=== PATIENT | female | born 1995 | race Caucasian/White ===

== ENCOUNTER 2021-06-01 10:58 | Emergency (ER) | payer MEDICAID, SELFPAY ==
[2021-06-01 11:00] VITALS: BP 107/68; PULSE 79; RESP 18; TEMP 36.2; O2SAT 99; BMI 20.4
--- NOTE | 2021-06-01 11:16 | ED.GENADULT ---
HPI - General Adult General Chief complaint: General Medical Stated complaint: Facial swelling/ wisdom teeth removal 1x wk Time Seen by Provider: 06/01/21 11:08 Source: patient and family History of Present Illness HPI narrative: Patient is 2 days postop wisdom tooth extraction. She comes in today because her face swelled up significantly starting at 03:00 this morning. Pain has increased. No fevers or chills. She is still able to swallow and eat food. She was on liquid diet but yesterday had sushi. No difficulty breathing. She denies swelling underneath her chin or in the back of her throat. She tried to call her oral surgeon today but so far has not gotten through so she came to the emergency department. Related Data Previous Rx's Medication Instructions Recorded clindamycin HCl 300 mg capsule 300 mg PO Q6H #28 cap 06/01/21 Allergies Allergy/AdvReac Type Severity Reaction Status Date / Time No Known Allergies Allergy Unverified 11/06/19 16:31 Review of Systems Constitutional: Comments: No fevers or chills ENT: Comments: Mild pain and facial swelling as mentioned Respiratory: Comments: No difficulty breathing Gastrointestinal: Comments: No nausea vomiting PMFSH Social History Social History Advance Directives: No Advance Directives Information Provided: No Patient : No Physical Exam ED Vital Signs: Vital Signs - 24 hr 06/01/21 11:00 Temperature 97.2 F Pulse Rate 79 Respiratory Rate 18 Blood Pressure 107/68 Pulse Oximetry 99 BMI result Body Mass Index 20.4 Const Other: Awake and alert in no acute distress. HENMT Other: Bilateral facial swelling but much more significant on the right side. Swelling is lateral posterior mandible and extending in to right side of face. No significant induration or erythema. No fluctuance noted. There is no submandibular swelling. She is able to open her mouth but not fully secondary to the discomfort. No lymphadenopathy noted. There is no stridor or difficulty swallowing or breathing. Neck Other: Full range of motion Resp Other: No respiratory distress Skin Other: Warm and dry without erythema Course Course Course Narrative: Postoperative dental infection Dry socket There is no evidence of Rito's angina or airway involvement. Patient is still able to adequately take p.o. as. She has been taking her penicillin, and I will add clindamycin for double antibiotic coverage. She will follow up with her oral surgeon for better evaluation and visualization. Increase mild wash rinses and switches to clear debris from sockets Discharge Plan Discharge Clinical Impression: Dental infection Patient Disposition: Home, Self-Care Instructions: Dental Abscess (ED) Additional Instructions: Be sure to increase mouthwash rinses to keep surgical sites free from debris. Continue to call your oral surgeon for follow-up in the next 1-2 days. Clindamycin is a 2nd antibiotic. Take this in addition to the penicillin you are already taking Prescriptions: New clindamycin HCl 300 mg capsule 300 mg PO Q6H Qty: 28 0RF
== END 2021-06-01 11:30 | disposition home or self-care (01) ==
PROVIDERS: Emergency Provider Emergency Medicine
DX: K04.7 Periapical abscess without sinus (principal)
CPT/HCPCS: 99283

== ENCOUNTER 2021-09-30 14:58 | Emergency (ER) | payer MEDICAID, SELFPAY ==
[2021-09-30 16:18] VITALS: BP 130/77; PULSE 81; RESP 16; TEMP 36.7; O2SAT 98; BMI 18.5
[2021-09-30 16:42] LABS: Appearance Urine HAZY; Color Urine YELLOW; Glucose Urine UA NEG (NEG); Leukocyte Esterase Urine NEG (NEG); Nitrite Urine NEG (NEG); PH 5.5 (5.0-8.0); Specific Gravity - Urine >= 1.030 (1.005-1.025); Urine Blood 1+ (NEG); Urine Ketones NEG (NEG); Urine Protein NEG (NEG-TRACE)
[2021-09-30 16:44] LABS: UPreg QC Valid YES; Urine Pregnancy NEGATIVE (NEGATIVE)
[2021-09-30 16:48] LABS: Bacteria Urine 2+ /LPF; Squamous Epithelial Cell Urine 3+ /LPF; WBC Urine 0-2 /HPF (0-4)
--- NOTE | 2021-09-30 20:16 | ED.NAVMDI ---
HPI - Nausea/Vomiting/Diarrhea General Chief complaint: Nausea/Vomiting/Diarrhea Stated complaint: vomiting/abd pain Time Seen by Provider: 09/30/21 20:15 Source: patient Mode of arrival: ambulatory Limitations: no limitations History of Present Illness HPI Narrative: Patient is a 26 year old female presenting to the emergency department today with resolved vomiting and diarrhea, now requesting STD screening. Patient states that she had some vomiting and diarrhea earlier today but that is now resolved and she would like to be tested for STDs. Patient denies any current dizziness, lightheadedness, abdominal pain, nausea, fever, chills, blurry vision, double vision, loss of vision, chest pain, difficulty breathing, shortness of breath, back pain, night sweats, pain with urination, increased urinary frequency, increased urinary urgency, blood in her urine or stool, syncope or a near syncopal episode, recent trauma or falls, bowel incontinence, bladder incontinence, bowel retention, bladder retention, or any other complaints at this time. MD elicited complaint: vomiting and diarrhea Onset (ago): hour(s) Associated nausea: Yes Associated abdominal pain: No Location of pain: none Severity: mild Exacerbating factors: none Relieving factors: none Related Data Previous Rx's Medication Instructions Recorded clindamycin HCl 300 mg capsule 300 mg PO Q6H #28 caps 06/01/21 doxycycline hyclate 100 mg tablet 100 mg PO BID 7 days #14 tabs 09/30/21 Allergies Allergy/AdvReac Type Severity Reaction Status Date / Time No Known Allergies Allergy Unverified 11/06/19 16:31 Review of Systems Constitutional: Constitutional: Reports no additional constitutional complaints, Denies chills, Denies fever(s) and Denies night sweats Eyes: Eyes: Reports no additional eye complaints, Denies blurry vision, Denies change in vision, Denies diplopia, Denies eye discharge, Denies loss of vision and Denies eye pain ENT: Denies dizziness Cardiovascular: Cardiovascular: Reports no additional cardiovascular complaints, Denies chest pain, Denies lightheadedness, Denies Loss of Consciousness and Denies dyspnea Respiratory: Respiratory: Reports no additional respiratory complaints and Denies dyspnea Gastrointestinal: Gastrointestinal: Reports nausea Genitourinary: Genitourinary: Denies hematuria, Denies urinary frequency, Denies dysuria, Denies urinary incontinence, Denies urinary hesitancy and Denies urinary urgency Musculoskeletal: Musculoskeletal: Reports no additional musculoskeletal complaints, Denies numbness and Denies tingling Neurologic: Denies dizziness, Denies loss of vision, Denies numbness and Denies tingling Psychiatric: Psychiatric: Reports no additional psychiatric complaints Endocrine: Endocrine: Reports no additional endocrine complaints Hematologic/Lymphatic: Hematologic/Lymphatic: Reports no additional hematologic/lymphatic complaints Allergic/Immunologic: Allergic/Immunologic: Reports no additional allergic/immunologic complaints [facility] Past Medical History Attestation statement: The following information was validated with the patient. Source: old records reviewed Social History Social History Advance Directives: No Advance Directives Information Provided: No Physical Exam Vital Signs: Vital Signs: Last Vital Signs Temp 98.3 F 09/30/21 23:14 Pulse 69 09/30/21 23:14 Resp 14 09/30/21 23:14 BP 115/62 09/30/21 23:14 Pulse Ox 98 09/30/21 23:14 O2 Del Method 09/30/21 23:14 BMI result Body Mass Index 18.5 Const: General: cooperative, no acute distress, alert and awake Nutritional Appearance: well nourished Orientation/consciousness: patient oriented x3 Limitations: no limitations HEENT: Head: Yes normal to inspection and Yes atraumatic Ears: hearing grossly normal bilaterally and external ears normal General nose exam: Normal external nose present, no nasal discharge noted and no epistaxis Face and sinus: Yes normal facial exam, No abrasion and No laceration Mouth: Normal oral and palatal mucosa present, no drooling and no muffled voice Eyes: General: appearance normal, both eyes and all related structures Periorbital: periorbital findings normal Eyelids: Yes eyelids normal Conjunctivae: conjunctivae normal Pupils: Equal, round and reactive pupils present EOM: EOMs intact bilaterally Neck: Neck: Yes normal visual inspection, Yes full ROM and Yes no lymphadenopathy Chest: Chest palpation & inspection: normal inspection of the chest Resp: Effort & Inspection: normal respiratory effort and able to speak in complete sentences Auscultation: clear to auscultation bilaterally Cardio: Rate: regular rate Rhythm: regular rhythm GI: Inspection: Yes normal to inspection Palpation (GI): Soft to palpation, not firm, nontender and no guarding Neuro: General: patient oriented x3 and moves all extremities Cranial nerves: Yes Equal, round and reactive pupils present Cognition (Neuro): normal cognition Motor exam (neuro): 5/5 motor strength present throughout Sensory Exam: Normal double simultaneous stimulation for sensation Coordination: [id number] test normal Extrem: General: Yes normal to inspection, Yes full ROM and Yes capillary refill normal Psych: Appearance: grossly normal Mental Status: mental status grossly normal Affect: normal affect Attitude: cooperative Thought process: Normal thought process present Thought content: Normal thought content present Insight: Good insight present (Psych) MDM - Nausea/Vomiting/Diarrhea MDM Narrative Medical decision making narrative: Patient is a 26 year old female presenting to the emergency department today requesting STD testing. Patient's physical exam was unremarkable. Patient's blood work showed an elevated white blood cell count however, I believe this secondary to her previous vomiting. I explained my physical exam findings as well as all test results to the patient. I answered all questions asked by the patient. Patient received STD prophylaxis, without incident. I stressed the importance of the patient taking her medication as prescribed. I stressed the importance of the patient following up with her primary care provider. I stressed the importance of the patient returning to the emergency department immediately if her symptoms were to worsen or if she were to develop any dizziness, shortness of breath, difficulty breathing, chest pain, blurry vision, loss of vision, nausea, vomiting, abdominal pain, fever, chills, back pain, or any other complaints. Patient verbalized agreement and understanding with this treatment plan and discharge. Differential Diagnosis Differential diagnosis: Likely gastroenteritis Medical Records Attestation: I reviewed the patient's medical records. Lab Data Attestation: I reviewed the patient's lab results. Result diagrams: 09/30/21 21:59 09/30/21 21:58 Labs: Lab Results 09/30/21 09/30/21 09/30/21 Range/Units 16:33 16:33 21:58 WBC (4.8-10.8) X10*3/uL RBC (4.20-5.50) X10*6/uL Hgb (12.0-16.0) g/dl Hct (37.0-47.0) % MCV (80.0-98.0) fL MCH (27.0-33.0) pg MCHC (31.0-35.0) g/dl RDW (11.0-16.0) % Plt Count (160-400) X10*3/uL MPV (9.4-12.3) fL Immature Gran % (Auto) (0.0-0.4) % Neut % (Auto) (45-73) % Lymph % (Auto) (20-40) % Winn % (Auto) (2-11) % Eos % (Auto) (0-4) % Baso % (Auto) (0-2) % Lymph # (Auto) (1.2-4.9) X10*3/uL Winn # (Auto) (0.1-1.2) X10*3/uL Eos # (Auto) (0.0-0.4) X10*3/uL Baso # (Auto) (0.0-0.2) X10*3/uL Abs Immat Gran (auto) (0.00-0.03) X10*3/uL Absolute Neuts (auto) (2.0-8.3) x10*3/uL Absolute Nucleated RBC (0.0-0.012) X10*3/uL Nucleated RBC % (auto) (0.0-0.2) /100WBC Sodium 142 (135-145) mmol/L Potassium 4.0 (3.3-5.1) mmol/L Chloride 106 (96-108) mmol/L Carbon Dioxide 24 (22-29) mmol/L Anion Gap 16 (12-20) BUN 12 (9-16) mg/dL Creatinine 0.76 (0.5-1.4) mg/dL Estim Creat Clear Calc 104.5 Estimated GFR > 60 Random Glucose 87 (60-115) mg/dL Calcium 9.8 (8.4-10.2) mg/dL Total Bilirubin 0.7 (0.0-1.0) mg/dL AST 20 (5-31) U/L ALT 12 (0-31) U/L Alkaline Phosphatase 63 (39-117) U/L Total Protein 8.6 H (6.5-8.0) g/dL Albumin 5.1 H (3.5-5.0) g/dL Lipase 21 (8-78) U/L Urine Color YELLOW Urine Appearance HAZY Urine pH 5.5 (5.0-8.0) Ur Specific [place] >= 1.030 H (1.005-1.025) Urine Protein NEG (NEG-TRACE) MG/DL Urine Glucose (UA) NEG (NEG) MG/DL Urine Ketones NEG (NEG) MG/DL Urine Blood 1+ H (NEG) Urine Nitrite NEG (NEG) Ur Leukocyte Esterase NEG (NEG) Urine RBC 5-9 H (0) /HPF Urine WBC 0-2 (0-4) /HPF Ur Squamous Epith Cells 3+ /LPF Urine Bacteria 2+ /LPF Urine Test NEGATIVE (NEGATIVE) 09/30/21 Range/Units 21:59 WBC 14.6 H (4.8-10.8) X10*3/uL RBC 4.93 (4.20-5.50) X10*6/uL Hgb 14.8 (12.0-16.0) g/dl Hct 43.9 (37.0-47.0) % MCV 89.0 (80.0-98.0) fL MCH 30.0 (27.0-33.0) pg MCHC 33.7 (31.0-35.0) g/dl RDW 13.0 (11.0-16.0) % Plt Count 322 (160-400) X10*3/uL MPV 8.8 L (9.4-12.3) fL Immature Gran % (Auto) 0.3 (0.0-0.4) % Neut % (Auto) 76.7 H (45-73) % Lymph % (Auto) 16.1 L (20-40) % Winn % (Auto) 6.0 (2-11) % Eos % (Auto) 0.7 (0-4) % Baso % (Auto) 0.2 (0-2) % Lymph # (Auto) 2.3 (1.2-4.9) X10*3/uL Winn # (Auto) 0.9 (0.1-1.2) X10*3/uL Eos # (Auto) 0.1 (0.0-0.4) X10*3/uL Baso # (Auto) 0.0 (0.0-0.2) X10*3/uL Abs Immat Gran (auto) 0.05 H (0.00-0.03) X10*3/uL Absolute Neuts (auto) 11.2 H (2.0-8.3) x10*3/uL Absolute Nucleated RBC 0.000 (0.0-0.012) X10*3/uL Nucleated RBC % (auto) 0.0 (0.0-0.2) /100WBC Sodium (135-145) mmol/L Potassium (3.3-5.1) mmol/L Chloride (96-108) mmol/L Carbon Dioxide (22-29) mmol/L Anion Gap (12-20) BUN (9-16) mg/dL Creatinine (0.5-1.4) mg/dL Estim Creat Clear Calc Estimated GFR Random Glucose (60-115) mg/dL Calcium (8.4-10.2) mg/dL Total Bilirubin (0.0-1.0) mg/dL AST (5-31) U/L ALT (0-31) U/L Alkaline Phosphatase (39-117) U/L Total Protein (6.5-8.0) g/dL Albumin (3.5-5.0) g/dL Lipase (8-78) U/L Urine Color Urine Appearance Urine pH (5.0-8.0) Ur Specific [place] (1.005-1.025) Urine Protein (NEG-TRACE) MG/DL Urine Glucose (UA) (NEG) MG/DL Urine Ketones (NEG) MG/DL Urine Blood (NEG) Urine Nitrite (NEG) Ur Leukocyte Esterase (NEG) Urine RBC (0) /HPF Urine WBC (0-4) /HPF Ur Squamous Epith Cells /LPF Urine Bacteria /LPF Urine Test (NEGATIVE) Discharge Plan Discharge Clinical Impression: Exposure to STD Patient Disposition: Home, Self-Care Instructions: Postexposure Prophylaxis (ED) Additional Instructions: Follow up with your primary care provider. Return to the emergency department immediately if your symptoms worsen or if you develop any dizziness, shortness of breath, difficulty breathing, chest pain, blurry vision, loss of vision, nausea, vomiting, abdominal pain, fever, chills, back pain, or any other complaints. Prescriptions: New doxycycline hyclate 100 mg tablet 100 mg PO BID 7 Days Qty: 14 0RF No Action clindamycin HCl 300 mg capsule 300 mg PO Q6H Qty: 28 0RF Referrals: [facility] [Primary Care Provider] - Interventions: ED Discharge Assessment Last Done: 09/30/21 23:15 Discharge Date/Time: 09/30/21 23:17 Print Language: Kyrgyz
[2021-09-30 22:03] LABS: Basophils Percent Auto 0.2 % (0-2); Eosinophils Absolute Auto 0.1 X10*3/uL (0.0-0.4); Eosinophils Percent Auto 0.7 % (0-4); Hematocrit 43.9 % (37.0-47.0); Hemoglobin 14.8 g/dl (12.0-16.0); Imm Gran Abs Auto 0.05 X10*3/uL (0.00-0.03); Imm Gran Pct Auto 0.3 % (0.0-0.4); Lymphocytes Absolute Auto 2.3 X10*3/uL (1.2-4.9); Lymphocytes Percent Auto 16.1 % (20-40); MANUAL DIFF FLAG NO; Mean Corpuscular HGB Conc 33.7 g/dl (31.0-35.0); Mean Platelet Volume 8.8 fL (9.4-12.3); Monocytes Absolute Auto 0.9 X10*3/uL (0.1-1.2); Neutrophils Absolute Auto 11.2 x10*3/uL (2.0-8.3); Neutrophils Percent Auto 76.7 % (45-73); Platelet Count 322 X10*3/uL (160-400); Red Blood Count 4.93 X10*6/uL (4.20-5.50); White Blood Count 14.6 X10*3/uL (4.8-10.8)
[2021-09-30 22:19] LABS: Alanine Aminotransferase 12 U/L (0-31); Albumin Level 5.1 g/dL (3.5-5.0); Alkaline Phosphatase 63 U/L (39-117); Anion Gap 16 (12-20); Aspartate Amino Transferase 20 U/L (5-31); Bilirubin Total 0.7 mg/dL (0.0-1.0); Blood Urea Nitrogen 12 mg/dL (9-16); Calcium 9.8 mg/dL (8.4-10.2); Carbon Dioxide 24 mmol/L (22-29); Chloride 106 mmol/L (96-108); Creatinine Clr Calc Pharmacy 104.5; Estimated Glomerular Filt Rate > 60; Glucose Random 87 mg/dL (60-115); Lipase 21 U/L (8-78); Sodium 142 mmol/L (135-145); Total Protein 8.6 g/dL (6.5-8.0)
[2021-09-30] MEDS: cefTRIAXone sodium 500 MG, Lidocaine HCl 1 % MPF 1 ML IM (23:01)
[2021-09-30 23:14] VITALS: BP 115/62; PULSE 69; RESP 14; TEMP 36.8; O2SAT 98
[2021-10-01 02:52] LABS: CT PCR NOT DETECTED (Not Detect.); NG PCR NOT DETECTED (Not Detect.)
== END 2021-09-30 23:17 | disposition home or self-care (01) ==
PROVIDERS: Emergency Provider Emergency Medicine Emergency Medical Services
DX: Z20.2 Contact with and (suspected) exposure to infections with a predominantly sexual mode of transmission (principal); R11.2 Nausea with vomiting, unspecified
CPT/HCPCS: 36415; 80053; 81001; 81025; 83690; 85025; 87491; 87591; 96372; 99284; J0696

== ENCOUNTER 2022-08-26 15:10 | Emergency (ER) | payer MEDICAID, SELFPAY ==
[2022-08-26 15:26] VITALS: BP 124/66; PULSE 63; RESP 16; TEMP 36.8; O2SAT 99; BMI 22.5
--- NOTE | 2022-08-26 15:42 | ED.EXTPRO ---
HPI - Extremity Problem General Chief complaint: Extremity Injury, Upper Stated complaint: right arm laceration Time Seen by Provider: 08/26/22 15:31 Source: patient Mode of arrival: ambulatory Limitations: no limitations History of Present Illness HPI Narrative: 27 yo female with history of anxiety, depression here with laceration to right forearm. Was knocking on a window and broke through the glass causing a laceration to the right forearm, right thumb. NO weakness, numbness, tingling. Tetanus UTD Related Data Previous Rx's Medication Instructions Recorded clindamycin HCl 300 mg capsule 300 mg PO Q6H #28 caps 06/01/21 doxycycline hyclate 100 mg tablet 100 mg PO BID 7 days #14 tabs 09/30/21 Allergies Allergy/AdvReac Type Severity Reaction Status Date / Time No Known Allergies Allergy Unverified 11/06/19 16:31 Review of Systems Review of Systems: Yes all other systems are reviewed and are negative Constitutional: Constitutional: Reports no additional constitutional complaints, Denies body ache(s), Denies chills, Denies fever(s), Denies headache(s) and Denies weakness Eyes: Eyes: Reports no additional eye complaints and Denies change in vision ENT: Reports system reviewed and no additional complaints, except as documented, Denies dizziness, Denies headache(s), Denies nasal congestion, Denies nasal discharge and Denies neck pain Cardiovascular: Cardiovascular: Reports no additional cardiovascular complaints, Denies chest pain, Denies leg edema and Denies dyspnea Respiratory: Respiratory: Reports no additional respiratory complaints, Denies cough and Denies dyspnea Gastrointestinal: Gastrointestinal: Reports no additional gastrointestinal complaints, Denies abdominal pain, Denies diarrhea, Denies nausea and Denies vomiting Genitourinary: Genitourinary: Reports no additional female genitourinary complaints and Denies urinary incontinence Musculoskeletal: Musculoskeletal: Reports no additional musculoskeletal complaints, Denies back pain, Denies arthralgias, Denies joint swelling, Denies neck pain, Denies numbness and Denies tingling Integumentary/Breasts: Skin/Breast: Reports system reviewed and no additional complaints, except as docu, Denies rash and Reports wounds Neurologic: Reports system reviewed and no additional complaints, except as documented, Denies Abnormal speech present, Denies dizziness, Denies headache(s), Denies numbness, Denies tingling and Denies weakness PMFSH Past Medical History Attestation statement: The following information was validated with the patient. Source: old records reviewed and nursing notes reviewed Physical Exam Vital Signs: Vital Signs: Last Vital Signs Temp 98.3 F 08/26/22 15:26 Pulse 63 08/26/22 15:26 Resp 16 08/26/22 15:26 BP 124/66 08/26/22 15:26 Pulse Ox 99 08/26/22 15:26 O2 Del Method Room Air 08/26/22 15:26 BMI result Body Mass Index 22.5 Const: General: cooperative, healthy appearing, comfortable and no acute distress Orientation/consciousness: patient oriented x3 Limitations: no limitations HEENT: Head: Yes normal to inspection Ears: hearing grossly normal bilaterally General nose exam: Normal external nose present Face and sinus: Yes normal facial exam Mouth: Normal oral and palatal mucosa present Throat: Yes posterior oropharynx normal Eyes: General: appearance normal, both eyes and all related structures Pupils: Equal, round and reactive pupils present Neck: Neck: Yes normal visual inspection Chest: Chest palpation & inspection: normal inspection of the chest Resp: Effort & Inspection: normal respiratory effort Auscultation: clear to auscultation bilaterally Cardio: Rate: regular rate Rhythm: regular rhythm Peripheral pulses: Peripheral pulses 2+ throughout GI: Inspection: Yes normal to inspection Palpation (GI): Soft to palpation and nontender Auscultation: normal bowel sounds Back/Spine/Pelvis: Thoracic/Lumbar Spine: thoracic and lumbar spine normal to inspection Skin: General skin exam: no rashes or lesions noted Neuro: General: patient oriented x3, no focal motor deficits and normal sensation to monofilament Cranial nerves: Yes Equal, round and reactive pupils present Cognition (Neuro): normal cognition Speech: No Abnormal speech present Gait exam (Neuro): Normal gait present Motor exam (neuro): 5/5 motor strength present throughout Extrem: Other: Over the volar right FA there is a 6cm laceration with sub Q tissue noted. bleeding controlled. FROM of right elbow/wrist/hand. Normal radial/ulnar pulses. Normal distal sensation. To the right thumb at the proximal nail bed there is a skin avulsion with FROM of the thumb. Nail is intact General: Yes normal to inspection Course Course Course Narrative: This patient was seen in conjunction with Paula Rivera PA-Student who performed the wound repair with my supervision Medications Administered Discontinued Medications Generic Name Dose Route Start Last Admin Trade Name Marva PRN Reason Stop Dose Admin Lidocaine HCl 2 ml 08/26/22 15:52 08/26/22 17:07 Lidocaine Hcl 1 % Mpf 2 Ml Vial INFILTRATI 08/26/22 15:53 2 ml ONCE ONE Administration Lidocaine HCl 2 ml 08/26/22 15:52 08/26/22 17:07 Lidocaine Hcl 1 % Mpf 2 Ml Vial INFILTRATI 08/26/22 15:53 2 ml ONCE ONE Administration Lidocaine HCl 2 ml 08/26/22 15:52 08/26/22 17:07 Lidocaine Hcl 1 % Mpf 2 Ml Vial INFILTRATI 08/26/22 15:53 2 ml ONCE ONE Administration Lidocaine HCl 2 ml 08/26/22 15:53 08/26/22 17:07 Lidocaine Hcl 1 % Mpf 2 Ml Vial INFILTRATI 08/26/22 15:54 2 ml ONCE ONE Administration Lorazepam 1 mg 08/26/22 15:51 08/26/22 16:18 Lorazepam 1 Mg Tablet PO 08/26/22 15:52 1 mg ONCE ONE Administration Medical Decision Making Medical Decision Making MDM Narrative: 27 yo female right hand dominant here with laceration to right thumb, right forearm from breaking a glass window WIll need x-ray to eval for FB +++++anxious. Will need ativan See procedure note for wound repair Differential Diagnosis Differential Diagnoses: The differential diagnosis associated with the presentation includes laceration low concern for tendon injury Independent Interpretation I performed an independent interpretation of an: Plain X-Ray Interpretation: I independently reviewed the x-ray and agree with rad report. Radiology Impression Discussion of test interpretation with radiology: I have reviewed the radiologist's reading. Radiologist Impression: [address] [address] XRay Report Signed Patient: Cindy Samayoa MR#: [id number] : 1995 Acct:[id number] Age/Sex: 27 / F ADM Date: 08/26/22 Loc: HO.ED Attending Dr: Ordering Physician: Rocio Rapp NP Date of Service: 08/26/22 Procedure(s): XR forearm RT 2V Accession Number(s): [id number] cc: Rocio Rapp NP~ Examination: Right hand and right forearm. CLINICAL INDICATION: Laceration. Evaluate for foreign body. TECHNIQUE: Right hand 3 views and right forearm 2 views. Clinical indications: None. FINDINGS: Right hand: There is no visible acute fracture, dislocation or subluxation. The joint spaces are maintained normal. There is a dorsal mid forearm soft tissue laceration there is a hypodense scattered area within the area of laceration question nonopaque foreign body/dirt. No radiopaque metallic foreign body seen. XR/XR forearm RT 2V IMPRESSION: Unremarkable right hand exam. No radiopaque foreign body seen. ? ? Laceration dorsal mid forearm with soft tissue hyperdensity likely nonmetallic foreign body/dirt. ? Procedures Laceration Laceration 1: Site: upper extremity Side (If applicable): right Size (cm): 6 Description: linear and irregular Depth: simple, single layer Local Anesthetic: lidocaine 1% Amount of anesthesia used (mL): 6 Pre-repair: wound explored, irrigated extensively (Extensively irrigated with 2L NS and syringe with pressure ) and deep structures intact Skin layer closed with: vicryl Size (cm): 5-0 Number of sutures: 7 Technique: simple, interrupted Subcutaneous layer closed with: other (polysorb) Size: 4-0 Number of sutures: 3 Technique: simple, interrupted Discharge Plan Discharge Clinical Impression: Laceration of arm Patient Disposition: Home, Self-Care Instructions: Laceration (ED) Additional Instructions: sutures out in 7-10 days Prescriptions: No Action clindamycin HCl 300 mg capsule 300 mg PO Q6H Qty: 28 0RF doxycycline hyclate 100 mg tablet 100 mg PO BID 7 Days Qty: 14 0RF
[2022-08-26 17:50] VITALS: BP 115/72; PULSE 67; RESP 15; O2SAT 98
== END 2022-08-26 17:52 | disposition home or self-care (01) ==
PROVIDERS: Emergency Provider Emergency Medicine; PCP Internal Medicine
DX: S51.811A Laceration without foreign body of right forearm, initial encounter (principal); W25.XXXA Contact with sharp glass, initial encounter; Y93.9 Activity, unspecified; Y92.9 Unspecified place or not applicable; Y99.9 Unspecified external cause status
CPT/HCPCS: 12032; 73090; 73120; 99284

== ENCOUNTER 2023-04-25 16:14 | Outpatient (REF) | payer SELFPAY ==
[2023-04-25 17:53] LABS: MANUAL DIFF FLAG NO
[2023-04-25 18:17] LABS: Basophils Percent Auto 0.3 % (0-2); Eosinophils Absolute Auto 0.1 X10*3/uL (0.0-0.4); Eosinophils Percent Auto 0.9 % (0-4); Hematocrit 44.6 % (37.0-47.0); Hemoglobin 14.8 g/dl (12.0-16.0); Imm Gran Abs Auto 0.04 X10*3/uL (0.00-0.03); Imm Gran Pct Auto 0.4 % (0.0-0.4); Lymphocytes Absolute Auto 3.2 X10*3/uL (1.2-4.9); Lymphocytes Percent Auto 29.5 % (20-40); Mean Corpuscular HGB Conc 33.2 g/dl (31.0-35.0); Mean Corpuscular Hemoglobin 28.8 pg (27.0-33.0); Mean Corpuscular Volume 86.8 fL (80.0-98.0); Mean Platelet Volume 9.6 fL (9.4-12.3); Monocytes Absolute Auto 0.6 X10*3/uL (0.1-1.2); Monocytes Percent Auto 5.8 % (2-11); Neutrophils Absolute Auto 6.8 x10*3/uL (2.0-8.3); Neutrophils Percent Auto 63.1 % (45-73); Platelet Count 398 X10*3/uL (160-400); Red Blood Count 5.14 X10*6/uL (4.20-5.50); Red Cell Distribution Width 13.2 % (11.0-16.0); White Blood Count 10.8 X10*3/uL (4.8-10.8)
[2023-04-25 18:33] LABS: Alanine Aminotransferase 15 U/L (0-31); Albumin Level 4.7 g/dL (3.5-5.0); Alkaline Phosphatase 116 U/L (39-117); Anion Gap 10 (12-20); Aspartate Amino Transferase 18 U/L (5-31); Bilirubin Total 0.6 mg/dL (0.0-1.0); Blood Urea Nitrogen 7 mg/dL (9-16); Calcium 9.9 mg/dL (8.4-10.2); Carbon Dioxide 27 mmol/L (22-29); Chloride 106 mmol/L (96-108); Cholesterol 190 mg/dL (<200); Estimated Glomerular Filt Rate > 60; Glucose Random 89 mg/dL (60-115); HDL Cholesterol 32 mg/dL (>40); LDL Cholesterol Calculated 138 mg/dL (<100); Potassium 3.7 mmol/L (3.3-5.1); Sodium 139 mmol/L (135-145); Total Protein 8.5 g/dL (6.5-8.0); Triglycerides 103 mg/dL (<150)
[2023-04-25 18:50] LABS: TSH reflex Free T4 1.06 uIU/mL (0.32-4.0)
[2023-04-25 20:00] LABS: Reflex LDLD? No
[2023-04-26 17:04] LABS: HCG Tumor Marker <5 mIU/mL; Prolactin 6.7 ng/mL
== END 2023-04-25 16:15 | disposition home or self-care (01) ==
LOC: HO.HHCL 16:14
PROVIDERS: Visit Provider Internal Medicine
DX: F32.A Depression, unspecified (principal); N91.2 Amenorrhea, unspecified
CPT/HCPCS: 36415; 80053; 80061; 84146; 84443; 84702; 85025

== ENCOUNTER 2024-03-21 13:55 | Outpatient (REF) | payer SELFPAY ==
--- OUTSIDE RECORDS SUMMARY | 2024-03-21 13:58 | XMS_ITS | Encounter Summary ---
Author Organization [employer] Address [address] [facility] 7t [place] [address] Care Team Providers Care Center Line Cutter Operator Name Role Phone Marti Miller MD Primary Care Provider + Encounter Details Date Type Department Care Team (Latest Contact Info) Description 03/21/2024 Travel Social History Tobacco Use Types Packs/Day Years Used Date Smoking Tobacco: Never Passive Smoke Exposure: Never Smokeless Tobacco: Never Alcohol Use Standard Drinks/Week Comments Never 0 (1 standard drink = 0.6 oz pur e alcohol) Depression Answer Date Recorded Patient Health Questionnaire-9 Score 8 04/30/2023 Patient Health Questionnaire-9 Score 8 04/30/2023 Last PHQ-9: Questionnaire Data Not on file 0 04/30/2023 Housing Stability Answer Date Recorded What is your housing situation today? I have deborah nicole 03/21/[address] you li ve. Do you have problems with any of the following? None of the above 03/21/2023 Food Insecurity Answer Date Recorded Within the past 12 months, y ou worried that your food would run out before you got money to buy more: Never True 03/21/2023 Within the past 12 months,th e food you bought just didn't last and you didn't have enough money to get more: Never True Transportation Answer Date Recorded In the past 12 months, has l ack of transportation kept you from medical appts, meetings, work or from getting things needed for daily living? No 03/21/2023 Utilities Answer Date Recorded In the past 12 months, has t he electric, gas, oil or water company threatened to shut off services in your home? No 03/21/2023 Depression Answer Date Recorded Patient Health Questionnaire-2 Score 4 04/30/2023 Comments Unknown Sex and Gender Information Value Date Recorded Sex Assigned at Female 12/19/2021 10:15 AM EDT Legal Sex Female 10:15 AM EDT Gender Identity Female 12/19/2021 10:15 AM EDT Sexual Orientation Straight 12/19/2021 10 :15 AM EDT documented as of this encounter Plan of Treatment Not on file documented as of this encounter Visit Diagnoses Not on filedocumented in this encounter Additional Health Concerns Assessment Noted Time PHQ-9 Depression Total Score: 8 04/30/19 24 9:57 AM EDT documented as of this encounter Care Teams Center Line Cutter Operator Relationship Specialty Start Date End Date Marti Miller MD [address] [place] [id number] PCP - General Internal Medicine 05/30/22 documented as of this encounter
--- OUTSIDE RECORDS SUMMARY | 2024-03-21 13:58 | XMS_ITS | Encounter Summary ---
Author Organization [employer] Address [address] [facility] 7t [place] [address] Care Team Providers Care Management Manager Name Role Phone Marti Miller MD Primary Care Provider + Encounter Details Date Type Department Care Team (Late st Contact Info) Description 03/21/2024 10:30 AM EST Office Visit [facility] [address] [place], [place] [phone] Cami Musa MD [address] [place], [place] [phone] Vaginal discharge Social History Tobacco Use Types Packs/Day Years Used Date Smoking Tobacco: Never Passive Smoke Exposure: Never Smokeless Tobacco: Never Tobacco Cessation:Counseling Given: Not Answered Alcohol Use Standard Drinks/Week Comments Never 0 (1 standard drink = 0.6 oz pur e alcohol) Depression Answer Date Recorded Patient Health Questionnaire-9 Score 8 04/30/2023 Patient Health Questionnaire-9 Score 8 04/30/2023 Last PHQ-9: Questionnaire Data Not on file 0 04/30/2023 Housing Stability Answer Date Recorded What is your housing situation today? I have deborah rivera 03/21/[address] you li [...] AM EDT documented as of this encounter Last Filed Vital Signs Vital Sign Reading Time Taken Comments Blood Pressure 126/54 03/21/2024 10:45 AM EST Pulse 109 03/21/2024 10:45 AM EST Temperature 35.9 ??C (96.6 ??F) 03/21/2024 10:[address] Respiratory Rate 20 03/21/2024 10:45 AM EST Oxygen Saturation - - Inhaled Oxygen Concentration - - Weight 77.7 kg (171 lb 6.4 oz) 03/21/2024 10:45 AM EST Height 165.1 cm (5' 5 ) 03/21/2024 10:45 AM EST Body Mass Index 28.52 03/21/2024 10:45 AM EST documented in this encounter Progress Notes * Cami Musa MD - 03/21/2024 10:30 AM EST SUBJECTIVE: Cindy Samayoa is a 28 y.o. year old female who presents for acute visit. Denies recent illness,ER visit, or hospitalization. Acute Concerns: She reports three days of clear vaginal discharge with itching externally. Small amount of bleedingon toilet paper with wiping. LMP 2 weeks ago. She is sexually active with one AMAB partner, last activity 3 days ago, without condom. Patient Active Problem List Diagnosis Childhood emotional disorder Chlamydial infection of anus and rectum Enlarged tonsils Learning difficulty Amygdalolith Family history of hyperthyroidism Environmental allergies Food insecurity Depression Amenorrhea Anxiety Contraceptive management History reviewed. No pertinent surgical history. Family History Problem Relation Name Age of Onset Thyroid disease Mother Social History Social History Narrative Not on file Review of Systems Constitutional: Negative. Respiratory: Negative. Cardiovascular: Negative. Genitourinary: Positive for dysuria and vaginal discharge. Negative for vaginal bleeding and vaginal pain. OBJECTIVE: Vitals: 03/21/24 1045 BP: 126/54 BP Location: Left arm Patient Position: Sitting BP Cuff Size: Adult Pulse: 109 Resp: 20 Temp: 96.6 ??F (35.9 ??C) TempSrc: Oral Weight: 171 lb 6.4 oz (77.7 kg) Height: 5' 5 (1.651 m) Physical Exam Vitals and nursing note reviewed. Constitutional: Appearance: Normal appearance. HENT: Head: Normocephalic and atraumatic. Skin: General: Skin is warm and dry. Neurological: General: No focal deficit present. Mental Status: She is alert and oriented to person, place, and time. Psychiatric: Mood and Affect: Mood normal. Behavior: Behavior normal. ASSESSMENT/PLAN Problem List Items Addressed This Visit None Visit Diagnoses Vaginal discharge we will contact her with results, avoid douching or cleaning with soap Relevant Orders Bacterial Vaginosis Chlamydia/N. Gonorrhoeae RNA, TMA, Urogenitial Follow Up: per PCP recall or sooner prn No Known Allergies Current Outpatient Medications: OLANZapine (ZyPREXA) 5 MG tablet, TAKE 1 TABLET BY MOUTH AT BEDTIME, Disp: 90 tablet, Rfl: 0 Vietnamese Translation: Patient is bilingual and declines translation services documented in this encounter Plan of Treatment Scheduled Orders Name Type Priority Associated Diagnoses Orde r Schedule Bacterial Vaginosis Microbiology Routine Vaginal discharge Ordered: 03/21/2024 Chlamydia/N. Gonorrhoeae RNA, TMA, Urogenitial Microbiology Routine Vaginal discharge Expected: 03/21/2024 (Approximate), Expires: 03/21/2025 documented as of this encounter Visit Diagnoses Diagnosis Vaginal discharge Leukorrhea, not specified as infective documented in this encounter Additional Health Concerns Assessment Noted Time PHQ-9 Depression Total Score: 8 04/30/19 24 9:57 AM EDT documented as of this encounter Care Teams Management Manager Relationship Specialty Start Date End Date Marti Miller MD [address] [place] [id number] PCP - General Internal Medicine 05/30/22 documented as of this encounter
--- OUTSIDE RECORDS SUMMARY | 2024-03-21 13:58 | XMS_ITS | Encounter Summary ---
Author Organization [employer] Address [address] [facility] 7t [place] [address] Care Team Providers Care Heading Maker Name Role Phone Marti Miller MD Primary Care Provider + Reason for Visit * Reason Comments Med Refill Encounter Details Date Type Department Care Team (Late st Contact Info) Description 07/13/2023 Refill [facility] 230 [place], [place] [phone] Marti Miller MD [address] [place], [place] [phone] Depression, unspecified depression type; Anxiety Social History Tobacco Use Types Packs/Day Years Used Date Smoking Tobacco: Never Smokeless Tobacco: Never Alcohol Use Standard [...] as of this encounter Visit Diagnoses Diagnosis Depression, unspecified depression type Anxiety Anxiety state, unspecified documented in this encounter Additional Health Concerns Assessment Noted Time PHQ-9 Depression Total Score: 8 04/30/19 24 9:57 AM EDT documented as of this encounter Care Teams Heading Maker Relationship Specialty Start Date End Date Marti Miller MD [address] [place] [phone] PCP - General Internal Medicine 05/30/22 documented as of this encounter
--- OUTSIDE RECORDS SUMMARY | 2024-03-21 13:58 | XMS_ITS | Encounter Summary ---
Author Organization [facility] [facility] Address [address] [facility] [address] [place] [address] Care Team Providers Care Final Inspector And Tester Name Role Phone Marti Miller MD Primary Care Provider + Reason for Visit * Reason Onset Date Comments Nurse Triage 03/20/2024 Encounter Details Date Type Department Care Team (Late st Contact Info) Description 03/20/2024 Telephone [facility] MED[facility] 230 [place], [place] [phone] Marti Miller MD [address] [place], [place] [phone] Nurse Triage Social History Tobacco Use Types Packs/Day Years [...] AM EDT documented as of this encounter Miscellaneous Notes * Telephone Encounter - Evelyn Roman RN - 03/20/2024 3:44 PM EST Call returned to Cindy Samayoa to triage below. Reports having vaginal itching, odor and bleeding from irritation. Per pt having clear discharge. Pt denies any pelvic pain or flank pain. Endorsesburning with passing urine. No odor or dark/cloudy color. Pt advised of disposition, agrees to [facility] tomorrow with team provider. Reviewed home care advise, ER precautions and reasons to call back. Protocol Used: Vaginal Symptoms (Adult) Protocol-Based Disposition: See in Office or Video Visit within 3 Days Future Appointments Date Time Provider Department Center 03/21/2024 10:30 AM Cami Musa MD [facility] Insurance verified as active per Real Time Eligibility in [facility]. Positive Triage Question: * Symptoms of a yeast infection (i.e., itchy, white discharge, not bad smelling) and not improved > 3 days following Care Advice * All higher-acuity triage questions were negative Care Advice Discussed: * Genital Hygiene * Reasons To Call Back - You become worse * Telephone Encounter - Marleni Samayoa - 03/20/2024 2:48 PM EST Symptoms: Vaginal Symptoms - Not Bleeding, Itching - No Rash Outcome: Schedule an urgent appointment (within 4 hours) or talk to a nurse or provider soon Reason: Itching has caused bleeding The caller accepted this outcome. [phone] documented in this encounter Plan of Treatment Not on file documented as of this encounter Visit Diagnoses Not on filedocumented in this encounter Additional Health Concerns Assessment Noted Time PHQ-9 Depression Total Score: 8 04/30/19 24 9:57 AM EDT documented as of this encounter Care Teams Final Inspector And Tester Relationship Specialty Start Date End Date Marti Miller MD [address] [place] [phone] PCP - General Internal Medicine 05/30/22 documented as of this encounter
--- OUTSIDE RECORDS SUMMARY | 2024-03-21 13:58 | XMS_ITS | Clinical Summary ---
Author Organization [employer] Address [address] [facility] 7t [place] [address] Care Team Providers Care Catering Operations Manager Name Role Phone Marti Miller MD Primary Care Provider + Allergies No known active allergies Medications * This document contains information received from the source organization and may not represent a complete record from that organization. OLANZapine (ZyPREXA) 5 MG tabletIndication s:Depression, unspecified depression type,Anxiety TAKE 1 TABLET BY MOUTH AT BEDTIME 90 tablet 4 Active Benzocaine-Menth ol (Cepacol INSTAMAX) 15-20 MG lozenge Take 1 lozenges every 2 hours as needed. 1 03/21/19 25 Discontinu ed(Therapy completed) Active Problems Problem Noted Date Diagnosed Date Contraceptive management 04/25/2023 Assessment & Plan (04/25/2023 3:57 PM EST): Discussed with her re contraceptive options including IUD, Nexplanon (re insert) and OCPs and to always use condom for STI prevention and as a good BC method. She didn't want to make any decision at this time. We also discussed about emergency contraception. She will call back prn if she decides to start BC or fu with me in . Counseled to stop THC use Depression 03/21/2023 Assessment & Plan (04/30/2023 11:23 AM EDT): During IBH Consult Cindy presenting with depressed mood, loss of interests/pleasure , trouble concentrating, thoughts of worthlessness or guilt, fatigue/loss of energy, inappropriate guilt , hopelessness, worthlessness , difficulty concentrating and excessive worry/anxiety, difficulty controlling worry, easily fatigued, difficulty concentrating/Mind going blank , and irritability; for a period of 18+ mo in the context of financial concern, employment concern, and relationship issues. Patient experiencing panic attacks due to current life stressors. PCP will start medication to treat sxs (see PCP note). Pt lives with mom and sister. PLAN: (check all that apply) Behavioral Health Integration Plan Internal Follow up with [facility] Patient Self Plan Patient to utilize skills provided in intervention , [facility] as [facility], Comply with medication , and Patient to reach out to [facility] as needed. Patient lost medical insurance. She will reconnect with the insurance department. Referral will be on-hold until insurance is renewed. clinician will provide follow-up BE. Assessment & Plan (04/25/2023 3:53 PM EST): -Seems to be doing well since starting Zyprexa. - will evaluate today, I will continue rx low dose Zyprexa for now and fu in 3m -Has crisis phone number and counseled to reach out for help. -Asked her to get labs done. -Follow up with Behavioral Health for continued education, GED, and employment acquisition. Assessment & Plan (03/21/2023 12:02 PM EST): -Seems to be doing well since starting Zyprexa. -Will refer to Behavioral Health for evaluation. -Has crisis phone number and counseled to reach out for help. -Ordered labs and asked to follow up in 4 weeks. -Follow up with Case Management and Behavioral Health for continued education, GED, and employment acquisition. Amenorrhea 03/21/2023 Assessment & Plan (04/25/2023 3:52 PM EST): test is neg today, order serum HCG. Order labs and fu in 3m Assessment & Plan (03/21/2023 12:02 PM EST): -Patient is one week late, will order HCG. Anxiety 03/21/2023 Assessment & Plan (04/30/2023 11:23 AM EDT): During IBH Consult Ladaisha presenting with depressed mood, loss of interests/pleasure , trouble concentrating, thoughts of worthlessness or guilt, fatigue/loss of energy, inappropriate guilt , hopelessness, worthlessness , difficulty concentrating and excessive worry/anxiety, difficulty controlling worry, easily fatigued, difficulty concentrating/Mind going blank , and irritability; for a period of 18+ mo in the context of financial concern, employment concern, and relationship issues. Patient experiencing panic attacks due to current life stressors. PCP will start medication to treat sxs (see PCP note). Pt lives with mom and sister. PLAN: (check all that apply) Behavioral Health Integration Plan Internal Follow up with [facility] Patient Self Plan Patient to utilize skills provided in intervention , Patient to reach out to [facility] team as needed, Comply with medication , and Patient to reach out to [facility] as needed. Patient lost medical insurance. She will reconnect with the insurance department. Referral will be on-hold until insurance is renewed. clinician will provide follow-up BE. Assessment & Plan (03/21/2023 12:04 PM EST): -Continue Zyprexa. -Follow up with Behavioral health. -Counseled on marijuana usage and it's oil heaterman effects on anxiety. -Will continue to prescribe Zyprexa for now. 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 Food insecurity 10/20/2016 Environmental allergies 11/04/2014 Childhood emotional disorder 04/24/2013 Learning difficulty 09/21/2011 Encounters Date Type Department Care Team Description 03/21/2024 10:30 AM EST Office Visit [facility] [address] [place] [phone] Cami Musa MD Vaginal discharge 03/21/2024 Travel 03/20/[address] [address] Marti Miller MD Nurse Triage 02/18/[address] [phone] Marti Miller MD No Show (Pt NO SHOW for Office Visit (MDD/Labs - r/s 01/25/24) with Dr. Miller 02/18/24. No Show Letter Mailed.) 02/07/2024 Patient Outreach [facility] [address] [place] [address] Matri Miller MD Pre-visit Planning (Not in service) 01/01/2024 Refill [facility] [address] [place] [address] Marti Miller MD Depression, unspecified depression type; Anxiety 12/31/2023 Refill [facility] [address] [place] [address] Marti Miller MD Depression, unspecified depression type; Anxiety from Last 3 Months Immunizations Name Administration Dates Next Due DTaP 10/05/2000, 8,03/20/1997,1997,02/15/1997,02/06/1997,1996,0 1996 HPV, Quadrivalent 03/24/2010,08/01/2007,05/31/19 08 Hep B, Adolescent or Pediatric 06/16/1997,1997,1996 Hep B, Unspecified 06/18/1997,03/20/1997, 997 HiB, unspecified 11/23/1997, 8,03/20/1997,1996,1996 Hib (HbOC) 11/23/1997, 8,02/15/1997,1996 IPV 10/05/2000, 8,03/18/1997,1996,02/06/1997,1996,1996 Influenza injectable quadriv alent IIV4 with preservative 11/20/2016 Influenza live intranasal trivalent 01/09/2013 Influenza, IIV3, injectable 03/24/2010 Influenza, live, intranasal 01/09/2013 MMR 10/05/2000,08/13/1997 Moderna Covid-19 Vaccine 12+ 03/10/2021,02/11/20 21 Tdap 05/31/2007 Varicella 05/31/2007,08/13/1997 Family History Medical History Relation Name Comments Thyroid disease Mother Relation Name Status Comments Mother Social History Tobacco Use Types Packs/Day Years [...] Orientation Straight 12/19/2021 10 :15 AM EDT Last Filed Vital Signs Vital Sign Reading Time Taken Comments Blood Pressure 126/54 03/21/2024 10:45 AM EST Pulse 109 03/21/2024 10:45 AM EST Temperature 35.9 ??C (96.6 ??F) 03/21/2024 10:[address] Respiratory Rate 20 03/21/2024 10:45 AM EST Oxygen Saturation 98% 04/25/2023 3:19 PM EST Inhaled Oxygen Concentration - - Weight 77.7 kg (171 lb 6.4 oz) 03/21/2024 10:45 AM EST Height 165.1 cm (5' 5 ) 03/21/2024 10:45 AM EST Body Mass Index 28.52 03/21/2024 10:45 AM EST Plan of Treatment Health Maintenance Due Date Last Done Comments HIV Screening 1996 Alcohol/Substance Use Screening 2008 Hepatitis C Screening 2014 DTaP/Tdap/Td Vaccines (7 - Td or Tdap) 05/30/2017 05/31/2007, 10/05/2000, 11/23/1997, Additional history exists Pap Smear 2017 COVID-19 Vaccine ( season) 2023 03/10/2021, 02/10/2021 Influenza Vaccine (#1) 2023 7, 01/09/2013, 01/09/2013, Additional history exists SDOH Screening 03/21/2024 03/21/2023 Family Planning (PISQ) 04/24/2024 04/25/2023 Depression Screening 04/29/2024 04/30/2023, 04/30/19 24 Tobacco Screening 03/21/2025 03/21/2024 Zoster Vaccines (1 of 2) 2046 RSV Patients and Patients Aged 60 years or older (1 - 1-dose 75+ series) 07/04/2071 Hepatitis B Vaccines Completed 06/18/1997, 06/16/1997, 03/20/1997, Additional history exists HIB Vaccines Completed 11/23/1997, 06/1997, 08/13/1997, Additional history exists IPV Vaccines Completed 10/05/2000, 02/21, 03/18/1997, Additional history exists HPV Vaccines Completed 03/24/2010, 07/20, 05/31/2007 Hepatitis A Vaccines Aged Out No long er eligible based on patient's age to complete this topic Meningococcal Vaccine Aged Out No saurabh lucinda eligible based on patient's age to complete this topic Pneumococcal Vaccine: Pediatrics (0 to 5 Years) and At-Risk Patients (6 to 49) Years) Aged Out No longer eligible based on patient's age to complete this topic RSV under 20 months Aged Out No longe r eligible based on patient's age to complete this topic Rotavirus Vaccines Aged Out No longer eligible based on patient's age to complete this topic Insurance [facility] C3 Care Teams Catering Operations Manager Relationship Specialty Start Date End Date Marti Miller MD [address] [place] [id number] PCP - General Internal Medicine 05/30/22
--- OUTSIDE RECORDS SUMMARY | 2024-03-21 13:58 | XMS_ITS | Encounter Summary ---
Author Organization [employer] [facility] Address [address] [facility] 7t [place] [address] Care Team Providers Care Product Safety Administrator Name Role Phone Marti Miller MD Primary Care Provider + Marti Miller MD Primary Care Provider + Reason for Visit * Reason Comments Med Refill Encounter Details Date Type Department Care Team (Late st Contact Info) Description 05/16/2022 Refill [facility] [address] [place] [phone] Ovi Wright MD [address] [place] [address] Depression, unspecified depression type; Anxiety Social History Tobacco Use Types Packs/Day Years Used Date Smoking Tobacco: Never Smokeless Tobacco: Never Comments Unknown Sex and Gender Information Value [...] Anxiety state, unspecified documented in this encounter Care Teams Product Safety Administrator Relationship Specialty Start Date End Date Marti Miller MD [address] [place], [place] [phone] PCP - General Family Medicine 09/06/17 05/29/22 Marti Miller MD [address] [place] [phone] PCP - General Internal Medicine 05/30/22 documented as of this encounter
--- OUTSIDE RECORDS SUMMARY | 2024-03-21 13:58 | XMS_ITS | Encounter Summary ---
Author Organization [employer] Address [address] [facility] [address] [place] [address] Care Team Providers Care Er Nurse Name Role Phone Marti Miller MD Primary Care Provider + Reason for Visit * Reason Onset Date Comments Appointment Request 03/08/2023 Encounter Details Date Type Department Care Team (Late st Contact Info) Description 03/08/2023 Telephone [facility] MED[facility]INE 230 [place], [place] [phone] Marti Miller MD 230 [place], [place] [phone] Appointment Request Social History Tobacco Use Types Packs/Day Years Used Date Smoking Tobacco: Never Smokeless Tobacco: Never Depression Answer Date Recorded Patient Health Questionnaire-9 Score 8 04/30/2023 Patient Health Questionnaire-9 Score 8 04/30/2023 Last PHQ-9: Questionnaire Data Not on file 0 04/30/2023 Housing Stability Answer Date Recorded What is your housing situation today? I have deborahninfa rivera 03/21/[address] you [...] encounter Miscellaneous Notes * Telephone Encounter - Bladimirdenisse Arsh - 03/08/2023 9:01 AM EST Tc from pt requesting to r/s OV Extended appt scheduled for appt was a no show. Please contact at [phone] or [phone] documented in this encounter Plan of Treatment Not on file documented as of this encounter Visit Diagnoses Not on filedocumented in this encounter Care Teams Er Nurse Relationship Specialty Start Date End Date Marti Miller MD [address] [place] [phone] PCP - General Internal Medicine 05/30/22 documented as of this encounter
[2024-03-21 15:22] LABS: Bacterial Vaginosis PCR NEGATIVE (Negative); Candida Group PCR DETECTED (Not Detect); Candida glab krusei PCR NOT DETECTED (Not Detect); Trichomonas vaginalis PCR NOT DETECTED (Not Detect)
[2024-03-21 16:16] LABS: CT PCR NOT DETECTED (Not Detect.); NG PCR NOT DETECTED (Not Detect.)
== END 2024-03-21 13:56 | disposition home or self-care (01) ==
LOC: HO.HHCLNP 13:55
PROVIDERS: Visit Provider General Practice
DX: N89.8 Other specified noninflammatory disorders of vagina (principal)
CPT/HCPCS: 81515; 87491; 87591

== ENCOUNTER 2024-06-11 | Outpatient (REF) | payer SELFPAY ==
[2024-06-12 11:30] LABS: Appearance Urine Clear; Color Urine Yellow; Glucose Urine UA Negative (Negative); Leukocyte Esterase Urine Negative (Negative); Nitrite Urine Negative (Negative); PH 6.5 (5.0-9.0); Specific Gravity - Urine 1.015 (1.005-1.025); UMIC TRIGGER UACC YES; Urine Blood Large (3+) (Negative); Urine Ketones Negative (Negative); Urine Protein Negative (Neg-Trace)
[2024-06-12 11:34] LABS: Bacteria Urine None Seen (None Seen); Hyaline Casts Urine 0-2 /LPF (0-2); RBC Urine >20 /HPF (0-2); Squamous Epithelial Cell Urine 0-2 /HPF (0-2); WBC Urine 0-5 /HPF (0-5)
[2024-06-12 13:04] LABS: Bacterial Vaginosis PCR NEGATIVE (Negative); Candida Group PCR NOT DETECTED (Not Detect); Candida glab krusei PCR NOT DETECTED (Not Detect); Trichomonas vaginalis PCR NOT DETECTED (Not Detect)
--- OUTSIDE RECORDS SUMMARY | 2024-06-12 13:25 | XMS_ITS | Clinical Summary ---
Author Organization [employer] Address 75 [facility] 7t [place] [address] Care Team Providers Care Gauger Delivery Name Role Phone Marti Miller MD Primary Care Provider + Allergies No known active allergies Medications * This document contains information received from the source organization and may not represent a complete record from that organization. OLANZapine (ZyPREXA) 5 MG tabletIndication s:Depression, unspecified depression type,Anxiety TAKE 1 TABLET BY MOUTH AT BEDTIME 90 tablet 04/30/2024 Active Active Problems Problem Noted Date Diagnosed Date [...] Health Integration Plan Internal Follow up with [facility] Patient Self Plan Patient to utilize skills provided in intervention , Patient to reach out to [facility]HC team as needed, Comply with medication , [...] dose Zyprexa for now and fu in -Has crisis phone number and counseled to [...] serum HCG. Order labs and fu in Assessment & Plan (03/21/2023 12:02 PM EST): [...] Health Integration Plan Internal Follow up with [facility] Patient Self Plan Patient to utilize skills provided in intervention , Patient to reach out to [facility] team as needed, Comply with medication , and Patient to reach out to [facility] as needed. Patient lost medical insurance. She will reconnect with the insurance department. Referral will be on-hold until insurance is renewed. clinician will provide follow-up BE. Assessment & Plan (03/21/2023 12:04 PM EST): -Continue Zyprexa. -Follow up with Behavioral health. -Counseled on marijuana usage and it's long term care social worker effects on anxiety. -Will continue to prescribe Zyprexa for now. 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 Food insecurity 10/20/2016 Environmental allergies 11/04/2014 Childhood emotional disorder 04/24/2013 Learning difficulty 09/21/2011 Encounters Date Type Department Care Team Description 06/11/2024 6:00 PM EDT Office Visit [facility] [address] [place] [address] Screening examination for STI (Primary Dx); Pelvic pain 06/11/2024 Travel 05/02/2024 Population Health Risk Score [facility] ([facility]) Department [address] [phone] Provider, Population Health Generic 04/29/2024 Refill [facility] [address] [place] [address] Marti Miller MD Depression, unspecified depression type; Anxiety 03/25/2024 Orders Only [facility] [address] [place] [address] Cami Musa MD 03/24/2024 Telephone [facility] [address] [place], [place] [phone] Li Barakat, RN Results 03/24/2024 Telephone [facility] [address] [place] [address] Chio Zafar, RN Results 03/21/2024 10:30 AM EST Office Visit [facility] [address] [place] [address] Cami Musa MD Vaginal discharge 03/21/2024 Travel 03/20/2024 Telephone [facility] [address] [place] [phone] Marti Miller MD Nurse Triage from Last 3 Months Immunizations Name Administration [...] Sign Reading Time Taken Comments Blood Pressure 118/84 06/11/2024 6:04 PM EDT Pulse 74 06/11/2024 6:04 PM EDT Temperature 35.6 ??C (96 ??F) 06/11/2024 6:04 PM EDT Respiratory Rate 16 06/11/2024 6:04 PM EDT Oxygen Saturation 98% 06/11/2024 6:04 PM EDT Inhaled Oxygen Concentration - - Weight 79.4 kg (175 lb) 06/11/2024 6:04 PM EDT Height 165.1 cm (5' 5 ) 06/11/2024 6:04 PM EDT Body Mass Index 29.12 06/11/2024 6:04 PM EDT Plan of Treatment Upcoming Encounters Date Type Department Care Team (Late st Contact Info) Description 06/23/2024 2:30 PM EDT Office Visit [facility] [address] [place], [place] [phone] Marti Miller MD [address] [place], [place] [phone] 9:30 AM EDT Procedure Visit [facility] [address] [place], [place] [phone] Yolanda Sterling CNM [address] [place], [place] [phone] Health Maintenance Due Date Last Done Comments HIV Screening 1996 Alcohol/Substance Use Screening 2008 Family Planning (PISQ) 07/04/2011 Hepatitis C Screening 2014 DTaP/Tdap/Td Vaccines (7 - Td or Tdap) 05/30/2017 05/31/2007, 10/05/2000, 11/23/1997, Additional history exists Pap Smear 2017 COVID-19 Vaccine ( season) 2023 03/10/2021, 02/10/2021 Influenza Vaccine (#1) 2023 7, 01/09/2013, 01/09/2013, Additional history exists SDOH Screening 03/21/2024 03/21/2023 Depression Screening 04/29/2024 04/30/2023, 04/30/19 24 Tobacco Screening 06/11/2025 06/11/2024 Zoster Vaccines (1 of 2) 2046 RSV [...] on patient's age to complete this topic Procedures Procedure Name Priority Date/Time Associated Diagnosis Comments URINALYSIS, COMPLETE, WITH REFLEX TO CULTURE Routine 06/11/2024 11:16 AM EDT Pelvic pain BACTERIAL VAGINOSIS PANEL Routine 06/11/2024 12:00 AM EDT CHLAMYDIA/N. GONORRHOEAE RNA, TMA, UROGENITAL Routine 03/21/2024 12:00 AM EST Vaginal discharge BACTERIAL VAGINOSIS PANEL Routine 03/21/2024 12:00 AM EST Vaginal discharge from Last 3 Months Results * (ABNORMAL) Urinalysis, Complete, with Reflex to Culture (06/11/2024 11:16 AM EDT) Color Urine Yellow [facility] Appearance Urine Clear [facility] PH 6.5 5.0 - 9.0 [facility] Glucose Urine UA Negative Negative mg/dL [facility] Urine Blood Large (3+)(A) Negative [facility] Specific [place] - Urine 1.015 1.005 - 1.025 [facility] Urine Protein Negative Neg-Trace mg/dL [facility] Urine Ketones Negative Negative mg/dL [facility] Nitrite Urine Negative Negative [facility] Leukocyte Esterase Urine Negative Negative [facility] RBC Urine >20(A) 0 - 2 /HPF [facility] Urine WBC 0-5 0 - 5 /HPF [facility] Urine Squamous Epithelial Cell 0-2 0 - 2 /HPF [facility] Urine Bacteria None Seen None Seen [facility] Hyaline Casts, Urine 0-2 0 - 2 /LPF [facility] Urine 06/11/2024 11:1 6 AM EDT 06/12/2024 11:38 AM EDT Narrative [facility] - 06/12/2024 11:39 AM EDT Urine, Clean Catch Esperanza Mcmullen DEPARTMENTAL BUYER LAB URINE ORDERABLES Final Resu lt Performing Organization Address [facility]/ZIP Co de Phone Number [facility] [address] [place] [phone] * Bacterial Vaginosis (06/11/2024 12:00 AM EDT) Only the most recent of2 resultswithin the time period is included. TRICHOMONAS VAGINALIS DETECTION BY PCR NOT DETECTED Not Detect [facility] BACTERIAL VAGINOSIS DETECTION BY PCR NEGATIVE Negative [facility] Comment:The BV organism targ ets of the Xpert Xpress MVP test can becommensal in women; Xpert Xpress MVP positive results forbacterial vaginosis should be considered in conjunction withother clinical and patient information to determine thedisease status. Organisms that are not detected by the XpertXpress MVP test have also been reported to be associatedwith BV and aerobic vaginitis.The Xpert Xpress MVP test performance has not been evaluatedin patients under the age of 14. MARIAH GROUP DETECTION BY PCR NOT DETECTED Not Detect [facility] Mariah glab krusei PCR NOT DETECTED Not Detect [facility] 06/11/2024 06/11/2024 Esperanza Mcmullen DEPARTMENTAL BUYER LAB MICROBIOLOGY - GENERAL ORDE RABLES Final Result Performing Organization Address [facility]/ZIP Co de Phone Number [facility] [address] [place] [phone] * Chlamydia/N. Gonorrhoeae RNA, TMA, Urogenitial (03/21/2024 12:00 AM EST) CT PCR NOT DETECTED Not Detect. [facility] Comment:A not detected test result does not exclude the possibilityof infection because test results can be affected byimproper specimen collection, concurrent antibiotic therapy,or the number of organisms in the specimen which may bebelow the sensitivity of the test. As with many diagnostictests, results from the Xpert CT/NG assay should beinterpreted in conjunction with other laboratory andclinical data available to the clinician.Xpert CT/NG performance has not been evaluated in patientsless than 14 years of age. The assay should not be used forthe evaluationof suspected sexual abuse or for other medico-legalindications. Additional testing is recommended in anycircumstance when false positive or false negative resultscould lead to adverse medical, social or psychologicalconsequences. NG PCR NOT DETECTED Not Detect. [facility] Comment:A not detected test result does not exclude the possibilityof infection because test results can be affected byimproper specimen collection, concurrent antibiotic therapy,or the number of organisms in the specimen which may bebelow the sensitivity of the test. As with many diagnostictests, results from the Xpert CT/NG assay should beinterpreted in conjunction with other laboratory andclinical data available to the clinician.Xpert CT/NG performance has not been evaluated in patientsless than 14 years of age. The assay should not be used forthe evaluationof suspected sexual abuse or for other medico-legalindications. Additional testing is recommended in anycircumstance when false positive or false negative resultscould lead to adverse medical, social or psychologicalconsequences. Urine (Urine, Random) 03/21/2024 03/21/2024 Narrative [facility] - 03/21/2024 4:17 PM EST Vaginal us Cami Musa MD LAB MICROBIOLOGY - GENERAL ORD ERABLES Final Result [facility] [address] [place] [phone] from Last 3 Months Insurance [facility] C[facility] Care Teams Gauger Delivery Relationship Specialty Start Date End Date Marti Miller MD [address] [place] [phone] PCP - General Internal Medicine 05/30/22
--- OUTSIDE RECORDS SUMMARY | 2024-06-12 13:25 | XMS_ITS | Encounter Summary ---
Author Organization [facility] Address 75 [facility] [address] [place] [address] Care Team Providers Care Nail Sticker Name Role Phone Marti Miller MD Primary Care Provider + Marti Miller MD Primary Care Provider + Reason for Visit * Reason Comments Med Refill Encounter Details Date Type Department Care Team (Late st Contact Info) Description 05/16/2022 Refill [facility] [address] [place] [address] [phone] Ovi Wright MD [address] [place] [address] [phone] Depression, unspecified depression type; Anxiety Social History [...] as of this encounter Plan of Treatment Upcoming Encounters Date Type Department Care Team (Late st Contact Info) Description 06/23/2024 2:30 PM EDT Office Visit [facility] [address] [place] [phone] Marti Miller MD [address] [place] [address] [phone] 9:30 AM EDT Procedure Visit [facility] [address] [place] [phone] Yolanda Sterling CNM [address] [place], [place] [phone] documented as of this encounter Visit Diagnoses Diagnosis Depression, unspecified depression type Anxiety Anxiety state, unspecified documented in this encounter Care Teams Nail Sticker Relationship Specialty Start Date End Date Marti Miller MD [address] [place] [phone] PCP - General Family Medicine 09/06/17 05/29/22 Marti Miller MD [address] [place] [phone] PCP - General Internal Medicine 05/30/22 documented as of this encounter
--- OUTSIDE RECORDS SUMMARY | 2024-06-12 13:26 | XMS_ITS | Encounter Summary ---
Author Organization [employer] Address 75 [facility] 7t [place] [address] Care Team Providers Care Stamping Die Maker Bench Name Role Phone Marti Miller MD Primary Care Provider + Encounter Details Date Type Department Care Team (Latest Contact Info) Description 06/11/2024 Travel Social History Tobacco Use Types Packs/Day [...] Description 06/23/2024 2:30 PM EDT Office Visit [facility] [address] [place] [phone] Marti Miller MD [address] [place] [address] 2024 9:30 AM EDT Procedure Visit [facility] [address] [place] [address] [phone] Yolanda Sterling CNM [address] [place] [phone] documented as of this encounter Visit Diagnoses Not on filedocumented in this encounter Additional Health Concerns Assessment Noted Time PHQ-9 Depression Total Score: 8 04/30/19 24 9:57 AM EDT documented as of this encounter Care Teams Stamping Die Maker Bench Relationship Specialty Start Date End Date Marti Miller MD [address] [place] [phone] PCP - General Internal Medicine 05/30/22 documented as of this encounter
--- OUTSIDE RECORDS SUMMARY | 2024-06-12 13:26 | XMS_ITS | Encounter Summary ---
Author Organization [employer] [facility] Address 75 [facility] 7t [place] [address] Care Team Providers Care Employee Representative Name Role Phone Marti Miller MD Primary Care Provider + Reason for Visit * Reason Comments Pelvic Pain Encounter Details Date Type Department Care Team (Late st Contact Info) Description 06/11/2024 6:00 PM EDT Office Visit [facility] [address] [place], [place] [phone] Screening examination for STI (Primary Dx); Pelvic pain Social History Tobacco Use Types Packs/Day Years [...] Mass Index 29.12 06/11/2024 6:04 PM EDT documented in this encounter Plan of Treatment Upcoming Encounters Date Type Department Care Team (Late st Contact Info) Description 06/23/2024 2:30 PM EDT Office Visit [facility] [address] [place] [phone] Marti Miller MD [address] [place] [phone] 9:30 AM EDT Procedure Visit [facility] [address] [place] [address] [phone] Yolanda Sterling CNM [address] [place] [address] Scheduled Orders Name Type Priority Associated Diagnoses Orde r Schedule Bacterial Vaginosis, Yeast and Trich Microbiology Routine Pelvic pain Expected: 06/11/2024 (Approximate), Expires: 06/11/2025 Chlamydia/N. Gonorrhoeae RNA, TMA, Vagina Microbiology Routine Screening examination for STI Pelvic pain Ordered: 06/11/2024 Hepatitis C Antibody with Reflex to HCV, RNA, Quantitative, Real-Time PCR Lab Routine Screening examination for STI Pelvic pain Expected: 06/11/2024 (Approximate), Expires: 06/11/2025 HIV-1/2 Antigen and Antibodies, Fourth Generation, with Reflexes Lab Routine Screening examination for STI Pelvic pain Expected: 06/11/2024 (Approximate), Expires: 06/11/2025 Syphilis Screen Lab Routine Screening examination for STI Pelvic pain Expected: 06/11/2024 (Approximate), Expires: 06/11/2025 documented as of this encounter Procedures Procedure Name Priority Date/Time Associated Diagnosis Comments URINALYSIS, COMPLETE, WITH REFLEX TO CULTURE Routine 06/11/2024 11:16 AM EDT Pelvic pain documented in this encounter Results * (ABNORMAL) Urinalysis, Complete, with Reflex to Culture (06/11/2024 11:16 AM EDT) Color Urine Yellow [facility] Appearance Urine Clear [facility] PH 6.5 5.0 - 9.0 [facility] Glucose Urine UA Negative Negative mg/dL [facility] Urine Blood Large (3+)(A) Negative [facility] Specific [place] - Urine 1.015 1.005 - 1.025 [facility] Urine Protein Negative Neg-Trace mg/dL [facility] Urine Ketones Negative Negative mg/dL [facility] Nitrite Urine Negative Negative [facility] Leukocyte Esterase Urine Negative Negative [facility] RBC Urine >20(A) 0 - 2 /HPF [facility] Urine WBC 0-5 0 - 5 /HPF [facility] Urine Squamous Epithelial Cell 0-2 0 - 2 /HPF [facility] Urine Bacteria None Seen None Seen [facility] Hyaline Casts, Urine 0-2 0 - 2 /LPF [facility] Urine 06/11/2024 11:1 6 AM EDT 06/12/2024 11:38 AM EDT Narrative [facility] - 06/12/2024 11:39 AM EDT Urine, Clean Catch us Esperanza Mcmullen CAGE CLERK LAB URINE ORDERABLES Final Resu lt [facility] [address] [place] [phone] documented in this encounter Visit Diagnoses Diagnosis Screening examination for STI- Primary Pelvic pain documented in this encounter Additional Health Concerns Assessment Noted Time PHQ-9 Depression Total Score: 8 04/30/19 24 9:57 AM EDT documented as of this encounter Care Teams Employee Representative Relationship Specialty Start Date End Date Marti Miller MD [address] [place] [phone] PCP - General Internal Medicine 05/30/22 documented as of this encounter
--- OUTSIDE RECORDS SUMMARY | 2024-06-12 13:26 | XMS_ITS | Encounter Summary ---
Author Organization [employer] Address 75 [facility] 7t [place] [address] Care Team Providers Care Adjunct Faculty Instructor Name Role Phone Marti Miller MD Primary Care Provider + Encounter Details Date Type Department Care Team (Late st Contact Info) Description 03/25/2024 Orders Only [facility] [address] [place], [place] [phone] Cami Musa MD [address] [place], [place] [phone] Social History Tobacco Use Types Packs/Day Years [...] t he electric, gas, oil or water [employer] threatened to shut off services in your [...] Description 06/23/2024 2:30 PM EDT Office Visit [facility] [address] [place] [address] [phone] Marti Miller MD [address] [place] [address] 2024 9:30 AM EDT Procedure Visit [facility] [address] [place] [address] Yolanda Sterling CNM [address] [place] [phone] documented as of this encounter Procedures Procedure Name Priority Date/Time Associated Diagnosis Comments BACTERIAL VAGINOSIS PANEL Routine 06/11/2024 12:00 AM EDT documented in this encounter Results * Bacterial Vaginosis (06/11/2024 12:00 AM EDT) TRICHOMONAS VAGINALIS DETECTION BY PCR NOT DETECTED Not Detect [facility] BACTERIAL VAGINOSIS DETECTION BY PCR NEGATIVE Negative [facility] Comment:The BV organism targ ets of [...] DETECTION BY PCR NOT DETECTED Not Detect [facility] Mariah glab krusei PCR NOT DETECTED Not Detect [facility] 06/11/2024 06/11/2024 Esperanza Mcmullen [facility] MICROBIOLOGY - [facility] PANG Final Result [facility] [address] [place] [phone] documented in this encounter Visit Diagnoses Not on filedocumented in this encounter Additional Health Concerns Assessment Noted Time PHQ-9 Depression Total Score: 8 04/30/19 24 9:57 AM EDT documented as of this encounter Care Teams Adjunct Faculty Instructor Relationship Specialty Start Date End Date Marti Miller MD [address] [place] [phone] PCP - General Internal Medicine 05/30/22 documented as of this encounter
--- OUTSIDE RECORDS SUMMARY | 2024-06-12 13:26 | XMS_ITS | Encounter Summary ---
Author Organization [employer] Address 75 [facility] 7t [place] [address] Care Team Providers Care Food Chemist Name Role Phone Marti Miller MD Primary Care Provider + Reason for Visit * Reason Comments Med Refill Encounter Details Date Type Department Care Team (Late st Contact Info) Description 07/13/2023 Refill [facility] [address] [place], [place] [phone] Marti Miller MD [address] [place], [place] [phone] Depression, unspecified depression type; Anxiety Social History [...] Office Visit [facility] [address] [place] [phone] Marti Miller MD [address] [place] [phone] 9:30 AM EDT Procedure Visit [facility] [address] [place] [phone] Yolanda Sterling CNM [address] [place] [address] documented as of this encounter Visit Diagnoses Diagnosis Depression, unspecified depression type Anxiety Anxiety state, unspecified documented in this encounter Additional Health Concerns Assessment Noted Time PHQ-9 Depression Total Score: 8 04/30/19 24 9:57 AM EDT documented as of this encounter Care Teams Food Chemist Relationship Specialty Start Date End Date Marti Miller MD [address] [place] [address] [phone] PCP - General Internal Medicine 05/30/22 documented as of this encounter
[2024-06-12 13:33] LABS: CT PCR NOT DETECTED (Not Detect.); NG PCR NOT DETECTED (Not Detect.)
== END 2024-06-11 00:01 | disposition home or self-care (01) ==
LOC: HO.HHCLNP
PROVIDERS: Visit Provider Nurse Practitioner
DX: R10.2 Pelvic and perineal pain (principal); Z11.3 Encounter for screening for infections with a predominantly sexual mode of transmission
CPT/HCPCS: 81001; 81515; 87491; 87591